=== PATIENT | female | born 1970 | race Caucasian/White ===

== ENCOUNTER 2017-03-26 10:46 | Emergency (ER) | payer OTHER ==
--- NOTE | 2017-03-26 11:59 | EDM.PDOC ---
ED HPI GENERAL MEDICAL PROBLEM - General Chief Complaint: Cardiovascular Problem Stated Complaint: HEART PALPITATIONS Time Seen by Provider: 03/26/17 11:36 Source of Information: Reports: Patient History Limitations: Reports: No Limitations - History of Present Illness INITIAL COMMENTS - FREE TEXT/NARRATIVE: The patient states that she has been experiencing weird feelings in her chest on and off for the past 2 years, but more frequently over the past week. She has difficulty describing the symptoms other than it is a fast or "flubby" sensation that comes in waves. The fast sensation may last 20-60 minutes, while the "flubby" sensation will only be one beat. She denies chest pain, but can't say that the sensation is not uncomfortable. She denies associated dyspnea, diaphoresis, or sense of impending doom, although she is not sure if she has associated nausea. She is not sure if she has an associated headache. She states that she was evaluated for these symptoms in a [place] emergency department, with a negative workup. She states that she wore a Holter monitor for either 24 or 48 hours, which returned negative. She was diagnosed with anxiety, and treated for a short time, but has not been treated for anxiety since. The patient's PCP is Dr. Locke, who has not been contacted about the patient' s recent symptoms. - Related Data Allergies Allergy/AdvReac Type Severity Reaction Status Date / Time No Known Allergies Allergy Verified 03/26/17 10:55 Home Meds: Home Meds Ibuprofen 600 mg PO TID PRN 03/26/17 [History] Levothyroxine 125 mcg PO DAILY 03/26/17 [History] Simvastatin [Zocor] 20 mg PO BEDTIME 03/26/17 [History] ZOLMitriptan [Zolmitriptan] 1 tab PO Q2H PRN 03/26/17 [History] Past Medical History Cardiovascular History: Reports: High Cholesterol Neurological History: Reports: Migraines Endocrine/Metabolic History: Reports: Hypothyroidism, Obesity/BMI 30+ - Past Surgical History HEENT Surgical History: Reports: Oral Surgery ([place] teeth extraction) Female Surgical History: Reports: D&C (x 1) Musculoskeletal Surgical History: Reports: Arthroscopic Procedure (left knee), Shoulder Surgery (Right - open x 3, arthroscopic x 1) Social & Family History - Tobacco Use Smoking Status *Q: Never Smoker - Alcohol Use Alcohol Use History: Yes Alcohol Use Frequency: Socially - Recreational Drug Use Recreational Drug Use: No - Living Situation & Occupation Living situation: Reports: , with Spouse, with Family (3 kids) 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 ED EXAM, GENERAL - Physical Exam Exam: See Below Exam Limited By: No Limitations General Appearance: Alert, WD/WN, No Apparent Distress Eye Exam: Bilateral Eye: Normal Inspection Ears: Normal External Exam, Hearing Grossly Normal Nose: Normal Inspection, No Blood Throat/Mouth: Normal Inspection, Normal Lips, Normal Voice, No Airway Compromise Head: Atraumatic, Normocephalic Neck: Normal Inspection, Full Range of Motion Respiratory/Chest: No Respiratory Distress, Lungs Clear, Normal Breath Sounds, No Accessory Muscle Use, Chest Non-Tender Cardiovascular: Normal Peripheral Pulses, Regular Rate, Rhythm, No Gallop, No JVD, No Murmur, No Rub Peripheral Pulses: 4+: Radial (L), Radial (R) GI/Abdominal: Normal Bowel Sounds, Soft, Non-Tender, No Organomegaly, No Distention, No Abnormal Bruit, No Mass, Other (Obese) (Female) Exam: Deferred Rectal (Female) Exam: Deferred Back Exam: Normal Inspection, Full Range of Motion, NT Extremities: Normal Inspection, Normal Range of Motion, No Pedal Edema, Normal Capillary Refill Neurological: Alert, Oriented, Normal Cognition, No Motor/Sensory Deficits Psychiatric: Normal Affect, Anxious Skin Exam: Warm, Dry, Intact, Normal Color, No Rash EKG INTERPRETATION EKG Date: 03/26/17 Time: 10:58 Rhythm: NSR Rate (Beats/Min): 72 [place]: Normal P-Wave: Present QRS: Normal ST-T: Normal QT: Normal Comparison: NA - No Prior EKG Course - Vital Signs Last Recorded V/S: Last Vital Signs Temp 37.2 C 03/26/17 10:56 Pulse 64 03/26/17 10:56 Resp 16 03/26/17 10:56 BP 164/105 H 03/26/17 10:56 Pulse Ox 98 03/26/17 10:56 - Orders/Labs/Meds Labs: Laboratory Tests 03/26/17 03/26/17 03/26/17 Range/Units 11:05 11:05 12:13 WBC 9.89 (3.98-10.04) K/mm3 RBC 4.70 (3.98-5.22) M/mm3 Hgb 14.3 (11.2-15.7) gm/L Hct 42.6 (34.1-44.9) % MCV 90.6 (79.4-94.8) fl MCH 30.4 (25.6-32.2) pg MCHC 33.6 (32.2-35.5) g/dl RDW Std Deviation 42.1 (36.4-46.3) fL Plt Count 363 (182-369) K/mm3 MPV 9.5 (9.4-12.3) fl Neutrophils % (Manual) 67 H (40-60) % Band Neutrophils % 0 (0-10) % Lymphocytes % (Manual) 25 (20-40) % Atypical Lymphs % 0 % Monocytes % (Manual) 5 (2-10) % Eosinophils % (Manual) 3 (0.7-5.8) % Basophils % (Manual) 0 L (0.1-1.2) Platelet Estimate Adequate RBC Morph Comment Normal PT 10.1 (8.0-13.0) SECONDS INR 0.93 APTT 28 (22-36) SECONDS D-Dimer, Quantitative 0.30 (0.19-0.59) mg/L Sodium 136 (136-145) mEq/L Potassium 4.3 (3.5-5.1) mEq/L Chloride 103 (98-107) mEq/L Carbon Dioxide 22 (21-32) mEq/L Anion Gap 15.3 H (5-15) BUN 18 (7-18) mg/dL Creatinine 1.1 H (0.55-1.02) mg/dL Est Cr Clr Drug Dosing 57.50 mL/min Estimated GFR (MDRD) 53 (>60) mL/min BUN/Creatinine Ratio 16.4 (14-18) Glucose 99 (74-106) mg/dL Calcium 9.2 (8.5-10.1) mg/dL Total Bilirubin 0.5 (0.2-1.0) mg/dL AST 33 (15-37) U/L ALT 32 (14-59) U/L Alkaline Phosphatase 69 (46-116) U/L Troponin I < 0.017 (0.00-0.056) ng/mL Total Protein 7.9 (6.4-8.2) g/dl Albumin 4.0 (3.4-5.0) g/dl Globulin 3.9 gm/dL Albumin/Globulin Ratio 1.0 (1-2) - Re-Assessments/Exams Free Text/Narrative Re-Assessment/Exam: 03/26/17 12:12 Two-view chest radiograph appears to be grossly normal. Cardiac silhouette is within normal limits. No pulmonary vascular congestion. No pleural effusions. No focal infiltrate. No pneumothorax. Formal read per the Radiologist pending. 03/26/17 12:42 Test results discussed with the patient. Today's workup is entirely normal, and does not explain the cause of her symptoms. Going forward, I'm recommending that the patient follow-up with her PCP, Dr. Locke, for further evaluation that could include a Holter monitor, or perhaps even a stress test. Departure - Departure Time of Disposition: 12:43 Disposition: Home, Self-Care 01 Condition: Good Clinical Impression: Heart palpitations Instructions: Palpitations, [id number] Referrals: Alexsandra Robin MD [Primary Care Provider] - Forms: ED Department Discharge Additional Instructions: You were seen in the emergency room for "weird feelings" in your chest on and off for the past 2 years. Workup in the ER included blood work, an ECG, and a chest x-ray. Your entire workup was unremarkable, and does not explain the cause of your symptoms. Your ECG was normal and did not show any abnormal rhythms. Your heart enzyme is not elevated. You do not have a blood clot in your lungs. Your chest x -ray was normal. We recommend that you follow-up with your PCP, Dr. Locke, for further evaluation. If any other problems, please do not hesitate to return to the ER.
--- NOTE | 2017-03-27 06:53 | CR ---
Chest: Two views of the chest were obtained. Comparison: No prior chest x-ray. Heart size and mediastinum are normal. Lungs are clear. Bony structures appear within normal limits. Impression: 1. Nothing acute is identified on two-view chest x-ray. Diagnostic code #1
== END 2017-03-26 13:13 | disposition home or self-care (01) ==
LOC: JD.ED 10:46
DX: R00.2 Palpitations (principal); E78.00 Pure hypercholesterolemia, unspecified; E03.9 Hypothyroidism, unspecified; Z79.899 Other long term (current) drug therapy
CPT/HCPCS: 36415; 71046; 71046-26; 80053; 84484; 85025; 85379; 85610; 85730; 93005; 93010; 99284-25; 99285-25